=== PATIENT | female | born 1975 | race American Indian/Alaskan Native ===

== ENCOUNTER 2019-04-21 08:32 | Outpatient (CLI) | payer MEDICAID, OTHER | END 2019-04-21 08:33 | disposition home or self-care (01) | LOC: LABHHL 08:32 | PROVIDERS: ATTEND Surgery | DX: N61.1 Abscess of the breast and nipple (principal) | CPT/HCPCS: 87116; 88112 ==

== ENCOUNTER 2020-07-26 06:32 | Day surgery (SDC) | payer MEDICAID ==
[~2020-07-26 06:32] MED LIST: ACETAMINOPHEN 500 MG TAB PO SCH; BUPIVACAINE/PF (0.25%) 2.5 MG/ML 30 ML VIAL INFILTRATI ONE; LACTATED RINGERS 1,000 ML IV SCH; LIDOCAINE (1%) 10 MG/1 ML VIAL 20 ML MDV INFILTRATI ONE; MIDAZOLAM 2 MG/2 ML INJ IV NR; WATER FOR IRRIG STERILE 1,500 ML BOTTLE IR ONE; ceFAZolin/Water 2 GM/20 ML 2 GM/20 ML SYRINGE IV NR
[2020-07-26] MEDS ORDERED: LACTATED RINGERS 1,000 ML ONE (06:47)
[2020-07-26] MEDS ORDERED: BACTERIOSTATIC SODIUM CHLORIDE 0.9% 30 ML VIAL INFILTRATI ONE (06:49)
[2020-07-26] MEDS ORDERED: BUPIVACAINE/PF (0.25%) 2.5 MG/ML 30 ML VIAL INFILTRATI ONE ×2 (07:05→08:33)
[2020-07-26] MEDS ORDERED: LIDOCAINE (1%) 10 MG/1 ML VIAL 20 ML MDV ONE (07:05)
[2020-07-26 07:30] LABS: Basophils % (Auto) 0.4 % (0.0-1.8); Eosinophils # (Auto) 0.1 K/mm3 (0.0-0.4); Eosinophils % (Auto) 1.6 % (0.0-4.3); Hematocrit 37.3 % (30.3-42.9); Hemoglobin 12.3 gm/dl (10.1-14.3); Lymphocytes # (Auto) 1.4 K/mm3 (1.2-5.4); Lymphocytes % (Auto) 15.4 % (13.4-35.0); Mean Corpuscular HGB Conc 33 % (30-34); Mean Corpuscular Volume 85 fl (79-97); Monocytes # (Auto) 0.8 K/mm3 (0.0-0.8); Platelet Count 275 K/mm3 (140-440); Red Blood Count 4.38 M/mm3 (3.65-5.03); Red Cell Distribution Width 17.3 % (13.2-15.2)
[2020-07-26] MEDS ORDERED: dexAMETHasone 20 MG/5 ML VIAL ONE (07:32)
[2020-07-26] MEDS ORDERED: ONDANSETRON 4 MG/2 ML INJ ONE (07:32)
[2020-07-26] MEDS ORDERED: LIDOCAINE MPF (2%) 20 MG/1 ML VIAL 5 ML ONE (07:32)
[2020-07-26] MEDS ORDERED: KETOROLAC 30 MG/1 ML INJ ONE ×2 (07:32→08:49)
[2020-07-26] MEDS ORDERED: HYDROmorphone 1 MG/1 ML INJ ONE (07:33)
[2020-07-26] MEDS ORDERED: propofoL 200 MG/20 ML VIAL IV ONE (07:33)
[2020-07-26 07:42] LABS: Blood Urea Nitrogen 6 mg/dL (7-17); Calcium 9.6 mg/dL (8.4-10.2); Hemolysis Index 4
--- NOTE | 2020-07-26 07:48 | Anesthesia Consultation ---
Anesthesia Consult and Med Hx Date of service: 07/26/20 - Airway Anesthetic Teeth Evaluation: Good ROM Head & Neck: Adequate Mental/Hyoid Distance: Adequate Mallampati Class: Class III Intubation Access Assessment: Possibly Difficult - Pre-Operative Health Status ASA Pre-Surgery Classification: ASA2 Proposed Anesthetic Plan: General - Pulmonary Hx Smoking: Yes Hx Respiratory Symptoms: No - Cardiovascular System Hx Hypertension: Yes Hx Heart Attack/AMI: No Hx Percutaneous Transluminal Coronary Angioplasty (PTCA): No - Central Nervous System Hx Psychiatric Problems: Yes (PTSD) - Gastrointestinal Hx Gastroesophageal Reflux Disease: Yes (diet controlled) - Endocrine Hx Renal Disease: No Hx Liver Disease: No Hx Insulin Dependent Diabetes: No Hx Non-Insulin Dependent Diabetes: No Hx Thyroid Disease: No - Other Systems Hx Obesity: No - Additional Comments Anesthesia Medical History Comments: No hx anesthetic complications.
--- NOTE | 2020-07-26 07:48 | Anesthesia Day of Surgery ---
Anesthesia Day of Surgery - Day of Surgery Patient Examined: Yes Patient H&P Reviewed: Yes Patient is NPO: Yes
[2020-07-26 07:56] LABS: BUN/Creatinine Ratio 9
[2020-07-26] MEDS ORDERED: HYDROmorphone 1 MG/1 ML INJ IV PRN (08:00)
[2020-07-26] MEDS ORDERED: oxyCODONE /ACETAMINOPHEN 5-325MG TAB PO PRN (08:00)
[2020-07-26] MEDS ORDERED: LACTATED RINGERS 1,000 ML IV SCH (08:00)
[2020-07-26] MEDS ORDERED: ONDANSETRON 4 MG/2 ML INJ IV PRN (08:00)
[2020-07-26] MEDS ORDERED: ceFAZolin/STERILE WATER 2 GM/20 ML SYRINGE IV NR (08:00)
[2020-07-26] MEDS ORDERED: VANCOMYCIN/NS 1 GM/250 ML 1 GM/250 ML BAG IV NR (08:00)
[2020-07-26] MEDS ORDERED: VANCOMYCIN 1,250 MG in SODIUM CHLORIDE 0.9% 250ML 250 ML IV SCH (08:00)
[2020-07-26] MEDS ORDERED: PHENYLEPHRINE/NS 1,000 MCG/10 ML SYRINGE (OR USE) IV ONE (08:30)
[2020-07-26] MEDS ORDERED: NEOMY 40 MG/POLYMYXIN B 200,000 UNITS/ML (GU) AMPULE IR ONE ×2 (08:33→08:37)
[2020-07-26] MEDS ORDERED: LIDOCAINE (1%) 10 MG/1 ML VIAL 20 ML MDV INFILTRATI ONE (08:33)
[2020-07-26] MEDS ORDERED: WATER FOR IRRIG STERILE 1,500 ML BOTTLE IR ONE (08:33)
--- NOTE | 2020-07-26 09:02 | Short Stay Summary ---
Short Stay Documentation Date of service: 07/26/20 - History H&P: obtained from office - Allergies and Medications Current Medications: Allergies nifedipine [From Procardia] Adverse Reaction (Verified 07/26/20 06:57) Swelling Home Medications Medication Instructions Recorded Confirmed Last Taken Type Sertraline [Zoloft] 25 mg PO DAILY 07/24/20 07/26/20 07/25/20 17:00 History Spironolactone [Aldactone] 25 mg PO QDAY 07/24/20 07/26/20 07/25/20 17:00 History Sulfamethoxazole/Trimethoprim 1 each PO BID 07/24/20 07/26/20 07/25/20 17:00 History [Bactrim DS TAB] atenoloL [Tenormin] 25 mg PO DAILY 07/24/20 07/26/20 07/25/20 17:00 History Sulfamethoxazole/Trimethoprim 1 each PO BID #20 tablet 07/26/20 Unknown Rx [Bactrim DS TAB] Active Medications Acetaminophen (Acetaminophen 500 Mg Tab) 1,000 mg PO PREOP RAMON Stop: 07/26/20 20:00 Last Admin: 07/26/20 07:00 Dose: 1,000 mg Documented by: Cefazolin Sodium (Cefazolin/Sterile Water 2 Gm/20 Ml Syringe) 2 gm IV PREOP NR Stop: 07/26/20 21:00 Hydromorphone HCl (Hydromorphone 1 Mg/1 Ml Inj) 0.5 mg IV Q10MIN PRN PRN Reason: Pain , Severe (7-10) Stop: 07/26/20 17:00 Lactated Ringer's (Lactated Ringers) 1,000 mls @ 100 mls/hr IV DIRECT RAMON Stop: 07/26/20 23:59 Last Admin: 07/26/20 07:30 Dose: 100 mls/hr Documented by: Lactated Ringer's (Lactated Ringers) 1,000 mls @ 75 mls/hr IV DIRECT RAMON Vancomycin HCl 1,250 mg/ (Sodium Chloride) 275 mls @ 166.667 mls/hr IV PREOP RAMON Stop: 07/26/20 19:00 Midazolam HCl (Midazolam 2 Mg/2 Ml Inj) 2 mg IV PREOP NR Stop: 07/26/20 20:00 Last Admin: 07/26/20 07:35 Dose: 2 mg Documented by: Ondansetron HCl (Ondansetron 4 Mg/2 Ml Inj) 4 mg IV ONCE PRN PRN Reason: Nausea And Vomiting Stop: 07/26/20 18:00 Oxycodone/Acetaminophen (Oxycodone /Acetaminophen 5-325mg Tab) 1 tab PO ONCE PRN PRN Reason: Pain, Moderate (4-6) Stop: 07/26/20 17:00 - Brief post op/procedure progress note Date of procedure: 07/26/20 Pre-op diagnosis: Left breast abscess Post-op diagnosis: same Procedure: Left breast abscess incision and drainage with drain placement Anesthesia: GETA Findings: Left breast abscess at nipple with 30 cc of pus drained Surgeon: LITO JAMESON Estimated blood loss: minimal Pathology: list (cultures) Specimen disposition: to lab Condition: stable - Disposition Condition at discharge: Good Disposition: DC-01 TO HOME OR SELFCARE Short Stay Discharge Plan Activity: other (no heavy lifting) Diet: regular Wound: keep clean and dry (wear breast binder; okay to shower) Follow up with: LITO JAMESON MD [Staff Physician] - 7 Days Prescriptions: Sulfamethoxazole/Trimethoprim [Bactrim DS TAB] 1 each PO BID #20 tablet
--- NOTE | 2020-07-26 09:11 | Operative Report ---
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 Patient with prior bilateral reduction mammoplasty with nipples left distorted. She was seen recently for worsening periductal mastitis and most recent vision on Thursday left retroareolar with abscess and 10-15 cc of pus aspirated with significant amount of abscess remaining and recommendation of surgical incision and drainage with drain placement under general anesthesia. Tobacco cessation has been discussed as well. Patient wished to proceed with the above procedure. Procedure in detail: Patient was then taken to the operating room and was laid supine. Gen. anesthesia was administered. The left breast was prepped and draped in the normal sterile operative fashion. Left breast retroareolar abscess with area of flutuacne at center of distorted nipple with surround erythema and induration of the nipple areolar complex. Ultrasound was used as well with area of fluctuance present. An 18 guage needle was inserted into the area of flutuance with 20 cc of pus aspirated. Then Using an 11 blade knife, a stab incision was made at the center of the nipple with additional pus present at area of fluctuance and drained. The breast cavity was irrigated with antibiotic solution. Hemostat was placed through the breast incision that was made and propagated throughout the NAC and its surrounding tissues to ensure no additional abscess pockets. A least 30-40 cc of pus was appropriately drained. The breast cavity was irrigated additionally with further antibiotic solution. 1/4 inch [place] drain was placed and sutured into place. Ultrasound was used with no other areas of abscess pocket present. The breast wound was then dressed with gauze and breast binder placed. The patient tolerated surgery very well and she was awaken from anesthesia without any complication and transported to PACU in good condition.
[2020-07-26 10:37] VITALS: BP 106/70
--- NOTE | 2020-07-26 13:46 | Post Anesthesia Evaluation ---
- Post Anesthesia Evaluation Patient Participated: Yes Airway Patent: Yes Stable Respiratory Function: Yes Nausea/Vomiting: No Temp > 96.8F: Yes Pain Manageable: Yes Adequeate Hydration: Yes Anesthesia Complications: No
== END 2020-07-26 10:25 | disposition home or self-care (01) ==
LOC: OR 06:32
PROVIDERS: ATTEND Surgery
DX: N61.1 Abscess of the breast and nipple (principal); I10 Essential (primary) hypertension; K21.9 Gastro-esophageal reflux disease without esophagitis; F17.210 Nicotine dependence, cigarettes, uncomplicated; Z98.891 History of uterine scar from previous surgery; Z88.8 Allergy status to other drugs, medicaments and biological substances; Z79.899 Other long term (current) drug therapy; Z72.89 Other problems related to lifestyle; Z98.890 Other specified postprocedural states
CPT/HCPCS: 19020; 36415; 80048; 81025; 85025; 87075; 87116; 88112; 88305; J0690; J1100; J1170; J1885; J2250; J2370; J2405; J2704; J3370; J7050; J7120